=== PATIENT | male | born 1980 | race Hispanic/Latino ===

== ENCOUNTER → 2023-04-21 | Emergency (ER) | payer BC ==
[~2023-04-21] MED LIST: BUPIVACAINE 0.5% PF 10 ML VIAL ONE; HYDROCODONE/APAP 7.5/325 MG TAB ONE; IBUPROFEN 400 MG TAB ONE; LIDOCAINE 1% MPF 5 ML VIAL ONE
--- NOTE | 2023-04-21 18:12 | RAD REPORT ---
EXAM DESCRIPTION: RAD -Hand Left 3 View - 04/21/2023 5:43 pm CLINICAL HISTORY: Left hand pain status post injury FINDINGS: Medial dislocation fourth middle phalanx. No fracture is seen
--- NOTE | 2023-04-21 19:42 | ER ---
Nurse's Notes [facility] Name: Robe Singh Age: 43 yrs Sex: Male : 1980 Arrival Date: 04/21/2023 Time: 16:26 Bed DX3 Private MD: Diagnosis: Dislocation of proximal interphalangeal joint of left ring finger, initial encounter Presentation: 04/20 17:09 Chief complaint: Patient states: I was rough housing with my kids and now i have a kd3 deformity on the left ring finger and it is swelling. I got my ring off of my finger. Coronavirus screen: Vaccine status: Patient reports receiving the 2nd dose of the covid vaccine. Ebola Screen: No symptoms or risks identified at this time. 17:09 Method Of Arrival: Ambulatory kd3 17:12 Initial Sepsis Screen: Does the patient meet any 2 criteria? No. Patient's initial kd3 sepsis screen is negative. Does the patient have a suspected source of infection? No. Patient's initial sepsis screen is negative. Risk Assessment: Do you want to hurt yourself or someone else? Patient reports no desire to harm self or others. Onset of symptoms was April 21, 2023. 17:12 Acuity: YODIT 4 kd3 Triage Assessment: 17:12 General: Appears in no apparent distress. Behavior is calm, cooperative. Pain: kd3 Complains of pain in dorsal aspect of proximal phalanx of left ring finger. Musculoskeletal: Bony deformity noted of dorsal aspect of proximal phalanx of left ring finger. Injury Description: Deformity sustained to dorsal aspect of proximal phalanx of left ring finger. Historical: - Allergies: 17:12 No Known Allergies; kd3 - Immunization history:: Adult Immunizations up to date. - Social history:: Smoking status: Patient reports the use of cigarette tobacco products, smokes one-half pack cigarettes per day. Screenin:50 [facility] ED Fall Risk Assessment (Adult) History of falling in the last 3 months, cm10 including since admission No falls in past 3 months (0 pts) Confusion or Disorientation No (0 pts) Intoxicated or Sedated No (0 pts) Impaired Gait No (0 pts) Mobility Assist Device Used No (0 pt) Altered Elimination No (0 pt) Score/Fall Risk Level 0 - 2 = Low Risk Oriented to surroundings, Maintained a safe environment, Hourly rounding (assess needs \T\ fall precautionary measures) done. Abuse screen: Denies threats or abuse. Denies injuries from another. Nutritional screening: No deficits noted. Tuberculosis screening: No symptoms or risk factors identified. Assessment: 19:50 General: Appears in no apparent distress. comfortable, Behavior is calm, cooperative. cm10 Neuro: No deficits noted. Level of Consciousness is awake, alert, obeys commands, Oriented to person, place, time, situation. Cardiovascular: No deficits noted. Capillary refill < 3 seconds Patient's skin is warm and dry. Respiratory: No deficits noted. Airway is patent Respiratory effort is even, unlabored, Respiratory pattern is regular, symmetrical. Musculoskeletal: Reports pain in dorsal aspect of proximal phalanx of left ring finger. Vital Signs: 17:09 Pulse 101; Resp 16; Temp 98.2(O); Pulse Ox 98% ; Weight 104.33 kg; Height 6 ft. 0 in. ; kd3 Pain 7/10; 17:12 BP 147 / 93; kd3 17:09 Body Mass Index 31.19 (104.33 kg, 182.88 cm) kd3 17:09 Pain Scale: Adult kd3 ED Course: 16:28 Patient arrived in ED. ra3 16:30 Alexis River PA is PHCP. cp 16:31 Grover Akbar MD is Attending Physician. cp 17:12 Triage completed. kd3 17:12 Arm band placed on right wrist. kd3 17:45 XRAY Hand LEFT 3 View In Process Unspecified. EDMS 19:39 Finger splint to 4th digit on left hand. cm10 19:51 XRAY Finger-Thumb Left In Process Unspecified. EDMS 19:51 Patient has correct armband on for positive identification. Provided Education on: cm10 Follow-up instructions. 19:51 No provider procedures requiring assistance completed. Patient did not have IV access cm10 during this emergency room visit. Administered Medications: 17:16 Drug: Ibuprofen PO 800 mg PO once Route: PO; kd3 19:50 Follow up: Response: No adverse reaction cm10 17:16 Drug: Hydrocodone-Acetaminophen PO (7.5 mg-325 mg) 1 tabs PO once; RASS on ADMIN: kd3 Combtv4, Very Agttd3, Agttd2, Rstlss1, AlertClm0, Drwsy-1, Lt Sdtn-2, Mod Sdtn-3, Dp Sdtn-4, UnArsble-5 Route: PO; 19:50 Follow up: Response: No adverse reaction cm10 19:22 Drug: Lidocaine Infiltration (1 %) 10 ml 5 ml Infiltration once; to bedside {Note: as6 administered by provider .} Volume: 5 ml; Route: Infiltration; 19:22 Drug: Bupivacaine Infiltration (0.5 %) 10 ml 10 ml Infiltration once {Note: as6 administered by provider .} Volume: 10 ml; Route: Infiltration; Medication: 19:51 VIS not applicable for this client. cm10 Outcome: 19:42 Discharge ordered by MD. cp 19:51 Discharged to home ambulatory, with significant other, cm10 19:51 Condition: good 19:51 Discharge instructions given to patient, Instructed on discharge instructions, follow up and referral plans. medication usage, Demonstrated understanding of instructions, follow-up care, medications, splint care, Prescriptions given X 2, 19:52 Patient left the ED. cm10 Signatures: Dispatcher [employer] EDMS Alexis River PA PA cp Brandon Young, RN RN as6 Edna Ellis, RN RN kd3 Melina Lake RN RN cm10 Chantel Mc ra3
--- NOTE | 2023-04-21 19:42 | EDPHYS ---
Physician Documentation [facility] Name: Robe Singh Age: 43 yrs Sex: Male : 1980 Arrival Date: 04/21/2023 Time: 16:26 Bed DX3 Private MD: ED Physician Grover Akbar HPI: 04/20 17:20 This 43 yrs old Male presents to ER via Ambulatory with complaints of Finger cp Injury. 17:20 The patient or guardian reports injury, swelling, tenderness, deformity. The complaints cp affect the PIP of left ring finger. Context: resulted from a fall, while playing with children. Onset: The symptoms/episode began/occurred just prior to arrival. Associated signs and symptoms: The patient has no apparent associated signs or symptoms. Historical: - Allergies: 17:12 No Known Allergies; kd3 - Immunization history:: Adult Immunizations up to date. - Social history:: Smoking status: Patient reports the use of cigarette tobacco products, smokes one-half pack cigarettes per day. ROS: 17:25 MS/extremity: Positive for injury or acute deformity, decreased range of motion, of the cp left fourth finger, 17:25 All other systems are negative, cp Exam: 17:30 Constitutional: The patient appears in no acute distress, alert, awake, well developed, cp well nourished, 17:30 Head/Face: Normocephalic, atraumatic. cp 17:30 Chest/axilla: Inspection: normal, 17:30 Cardiovascular: Rate: tachycardic, Pulses: Pulses are 2+ in left radial artery. 17:30 Respiratory: the patient does not display signs of respiratory distress, Respirations: normal, no use of accessory muscles, 17:30 Back: pain, is absent, ROM is normal, 17:30 Musculoskeletal/extremity: Extremities: noted in the left hand: swelling, pain, tenderness of left fourth finger with deformity noted of PIP joint, Vital Signs: 17:09 Pulse 101; Resp 16; Temp 98.2(O); Pulse Ox 98% ; Weight 104.33 kg; Height 6 ft. 0 in. ; kd3 Pain 7/10; 17:12 BP 147 / 93; kd3 17:09 Body Mass Index 31.19 (104.33 kg, 182.88 cm) kd3 17:09 Pain Scale: Adult kd3 Procedures: 19:38 Reduction: of the left fourth finger PIP joint, using manipulation, Immobilized with metal finger splint. Patient tolerated well. Post reduction film - reveals normal alignment. digital block performed using 7 cc mixture 1% lidocaine w/o epi and 0.5% marcaine. MDM: 17:13 Patient medically screened. 18:00 Differential diagnosis: dislocation, open fracture, closed fracture. 19:41 Data reviewed: vital signs, nurses notes, radiologic studies, plain films. 19:41 I considered the following discharge prescriptions or medication management in the emergency department Medications were administered in the Emergency Department. See MAR. Counseling: I had a detailed discussion with the patient and/or guardian regarding the historical points, exam findings, and any diagnostic results supporting the discharge/admit diagnosis, radiology results, the need for outpatient follow up, hand surgeon, to return to the emergency department if symptoms worsen or persist or if there are any questions or concerns that arise at home. Response to treatment: the patient's symptoms have markedly improved after treatment, and as a result, I will discharge patient. 04/20 17:11 Order name: XRAY Hand LEFT 3 View; Complete Time: 19:40 cp 04/20 19:14 Order name: XRAY Finger-Thumb Left cp 04/20 19:14 Order name: Finger Splint; Complete Time: 19:39 cp Administered Medications: 17:16 Drug: Ibuprofen PO 800 mg PO once Route: PO; kd3 19:50 Follow up: Response: No adverse reaction cm10 17:16 Drug: Hydrocodone-Acetaminophen PO (7.5 mg-325 mg) 1 tabs PO once; RASS on ADMIN: kd3 Combtv4, Very Agttd3, Agttd2, Rstlss1, AlertClm0, Drwsy-1, Lt Sdtn-2, Mod Sdtn-3, Dp Sdtn-4, UnArsble-5 Route: PO; 19:50 Follow up: Response: No adverse reaction cm10 19:22 Drug: Lidocaine Infiltration (1 %) 10 ml 5 ml Infiltration once; to bedside {Note: as6 administered by provider .} Volume: 5 ml; Route: Infiltration; 19:22 Drug: Bupivacaine Infiltration (0.5 %) 10 ml 10 ml Infiltration once {Note: as6 administered by provider .} Volume: 10 ml; Route: Infiltration; Disposition Summary: 04/21/23 19:42 Discharge Ordered Notes: Location: Home cp Problem: new cp Symptoms: have improved cp Condition: Stable cp Diagnosis - Dislocation of proximal interphalangeal joint of left ring finger, initial encountercp Followup: cp - With: Private Physician - When: 1 week - Reason: Recheck today's complaints Discharge Instructions: - Discharge Summary Sheet cp - Finger or Thumb Dislocation cp Forms: - Medication Reconciliation Form cp - Thank You Letter cp - Antibiotic Education cp - Prescription Opioid Use cp - Patient Portal Instructions cp - Leadership Thank You Letter cp Prescriptions: - Cephalexin 500 mg Oral Capsule - take 1 capsule ORAL route every 8 hours for 10 days; 30 capsule; Refills: 0, cp Product Selection Permitted - Naprosyn 500 mg Oral Tablet - take 1 tablet ORAL route 2 times per day take with food; 30 tablet; Refills: 0, cp Product Selection Permitted Addendum: 04/23/2023 07:59 I was immediately available for consultation during this patient's visit. I did not e c2 personally see the patient or discuss the patient with the LUCIE. . Signatures: Dispatcher [employer] EDMS Alexis River PA PA cp Brandon Young RN RN as6 Edna Ellis RN RN kd3 Grover Akbar MD MD ec2 Melina Lake RN cm10 Corrections: (The following items were deleted from the chart) 04/20 19:34 19:32 MS/extremity: Positive for injury or acute deformity, decreased range of motion, cp of the left fourth finger, cp
--- NOTE | 2023-04-21 20:11 | RAD REPORT ---
EXAM DESCRIPTION: RAD - Finger-Thumb Left - 04/21/2023 7:49 pm CLINICAL HISTORY: Fourth digit dislocation FINDINGS: Previously described dislocation fourth middle phalanx has been reduced No fracture seen
[2023-04-21 20:21] VITALS: BP 147/93; TEMP 98.2; O2SAT 98
== END ==
LOC: ER 16:26
PROC: 0RSXXZZ Reposition Left Finger Phalangeal Joint, External Approach (ICD-10-PCS; principal; 2023-04-21)
DX: S63.285A Dislocation of proximal interphalangeal joint of left ring finger, initial encounter (principal); F17.210 Nicotine dependence, cigarettes, uncomplicated
CPT/HCPCS: 73140; 73130; 26770; J2001; 99283